=== PATIENT | male | born 1990 | race Caucasian/White ===

== ENCOUNTER 2018-12-12 16:54 | Emergency (ER) | payer OTHER ==
[~2018-12-12] VITALS: Ht 190.5 cm; Wt 80.7 kg
[2018-12-12] MEDS ORDERED: MUPIROCIN22 GM TOP (17:54)
[2018-12-12] MEDS ORDERED: DOXYCYCLINE MO100 MG PO (17:54)
== END 2018-12-12 17:59 | disposition home or self-care (01) ==
LOC: ED 16:54
DX: L02.211 Cutaneous abscess of abdominal wall (principal); F17.200 Nicotine dependence, unspecified, uncomplicated
CPT/HCPCS: 99282